=== PATIENT | female | born 1980 | race American Indian/Alaskan Native ===

== ENCOUNTER 2021-02-16 17:06 | Emergency (ER) | payer MEDICAID, OTHER ==
[2021-02-16 17:29] VITALS: BP 132/74
--- NOTE | 2021-02-16 18:22 | Emergency Department Report ---
ED Extremity Problem HPI - General Chief complaint: Extremity Injury, Lower Stated complaint: NUMBNESS AND TINGLING IN LEFT FOOT AND LEG. Time Seen by Provider: 02/16/21 17:53 Source: patient Mode of arrival: Ambulatory Limitations: No Limitations - History of Present Illness Initial comments: 40-year-old female who is currently 30 weeks presents to the ER today with complaints of left leg pain, numbness and tingling. Patient states that symptoms started 3 days ago. She reports that the numbness is mainly to the left foot, and the tingling is mainly to her left calf and sometimes into the left thigh. She is also having pain in her left thigh and her left calf. She states that what really concerned her was today when she felt feet it felt cold and so she came to the ER. She denies any apparent swelling to her legs. She denies any back pain, chest pain, shortness of breath, abdominal pain or any related issues, leg weakness, bowel or bladder incontinence. She is G5, P3, Ab1. She states that with her last she did end up having preeclampsia when she was around 36 weeks and she was concerned that her sympto ms today are related to the preeclampsia. She denies any concern for preeclampsia during this and she states that her blood pressure has been doing fine. She denies any prior history of DVT or PE. She denies any history of sciatica or issues with her back in the past. Complaint: extremity pain, other (left leg tingling/left foot numbness) -: days(s) (3) - Related Data Previous Rx's Medication Instructions Recorded Last Taken Type Ibuprofen [Motrin 600 MG tab] 600 mg PO Q8H PRN #30 tablet 11/13/15 Unknown Rx Allergies Allergy/AdvReac Type Severity Reaction Status Date / Time No Known Allergies Allergy Unverified 11/13/15 10:24 ED Review of Systems ROS: Stated complaint: NUMBNESS AND TINGLING IN LEFT FOOT AND LEG. Other details as noted in HPI Comment: All other systems reviewed and negative Constitutional: denies: chills, fever Eyes: denies: eye pain, eye discharge, vision change ENT: denies: ear pain, throat pain, dental pain, hearing loss, epistaxis, congestion Respiratory: denies: cough, shortness of breath, wheezing Cardiovascular: denies: chest pain, palpitations Endocrine: no symptoms reported Genitourinary: denies: urgency, dysuria, frequency, hematuria, discharge Musculoskeletal: other (Left leg pain, left foot tingling and left calf numbness). denies: back pain, joint swelling, arthralgia, myalgia Neurological: numbness, paresthesias. denies: headache, weakness, abnormal gait Psychiatric: denies: anxiety, depression, auditory hallucinations, visual hallucinations, homicidal thoughts, suicidal thoughts Hematological/Lymphatic: denies: easy bleeding, easy bruising, swollen glands ED Past Medical Hx - Past Medical History Previous Medical History?: Yes Hx Hypertension: Yes (preeclampsia) - Surgical History Past Surgical History?: No - Social History Smoking Status: Never Smoker Substance Use Type: None - Medications Home Medications: Home Medications Medication Instructions Recorded Confirmed Last Taken Type Ibuprofen [Motrin 600 MG tab] 600 mg PO Q8H PRN #30 tablet 11/13/15 Unknown Rx ED Physical Exam - General Limitations: No Limitations General appearance: alert, in no apparent distress - Head Head exam: Present: atraumatic, normocephalic, normal inspection - Eye Eye exam: Present: normal appearance, PERRL, EOMI Pupils: Present: normal accommodation - ENT ENT exam: Present: normal exam, mucous membranes moist - Neck Neck exam: Present: normal inspection, full ROM - Respiratory Respiratory exam: Present: normal lung sounds bilaterally. Absent: respiratory distress, wheezes, rales, rhonchi - Cardiovascular Cardiovascular Exam: Present: regular rate, normal rhythm, normal heart sounds - GI/Abdominal GI/Abdominal exam: Present: soft, other (Gravid uterus noted consistent with gestational age without any tenderness). Absent: distended, tenderness, guarding, rebound - Extremities Exam Extremities exam: Present: normal inspection, full ROM, calf tenderness (mild, left calf ). Absent: normal capillary refill, pedal edema, joint swelling - Back Exam Back exam: Present: normal inspection, full ROM. Absent: tenderness, paraspinal tenderness, vertebral tenderness - Neurological Exam Neurological exam: Present: alert, oriented X3, CN II-XII intact, normal gait, reflexes normal. Absent: motor sensory deficit - Psychiatric Psychiatric exam: Present: normal affect, normal mood - Skin Skin exam: Present: intact ED Course Vital Signs 02/16/21 17:26 Temperature 98.9 F Pulse Rate 104 H Respiratory 20 Rate Blood Pressure 132/74 O2 Sat by Pulse 99 Oximetry ED Medical Decision Making - Lab Data Result diagrams: 02/16/21 18:47 02/16/21 18:47 - Radiology Data Radiology results: report reviewed Patient: QIAN BRAUN MR#: [id number] : 1980 Acct:[id number] Age/Sex: 40 / F ADM Date: 02/16/21 Loc: ED Attending Dr: Ordering Physician: ZARI SHERIDAN Date of Service: 02/16/21 Procedure(s): VL venous duplex LE LT Accession Number(s): [id number] cc: ZARI SHERIDAN DUPLEX DOPPLER LOWER EXTREMITY VEINS, LEFT INDICATION / CLINICAL INFORMATION: left leg pain/30 weeks . TECHNIQUE: Duplex doppler imaging was performed through the veins of the left lower extremity using venous compression and other maneuvers. COMPARISON: None available. FINDINGS: LEFT COMMON FEMORAL VEIN: Negative. LEFT FEMORAL VEIN: Negative. LEFT POPLITEAL VEIN: Negative. LEFT CALF VEINS: Negative. ADDITIONAL FINDINGS: None. IMPRESSION: No sonographic evidence for DVT in the left lower extremity. Signer Name: Lety Erickson MD Signed: 02/16/2021 7:29 PM Workstation Name: [id number] Transcribed By: SS Dictated By: LETY ERICKSON Electronically Authenticated By: LETY ERICKSON Signed Date/Time: 02/16/211928 DD/ 28 TD/TT: - Medical Decision Making Labs unremarkable; Venous doppler normal Pt is well appearing, not toxic and not in any acute distress. She has no neuro deficitis on exam and her gait is normal in ED. She has no abd pain or other related complaints, chest or SOB. Her VS stable. At this time there is no indication for additional imaging/testing, specialist consult or admission. Pt symptoms could be related to sciatica at this time. Discussed suspected dx with patient. Recommend close f/u with OBGYN. She express ed understanding of instructions and agreed with plan. SHe was stable a time of d/c. Critical care attestation.: If time is entered above; I have spent that time in minutes in the direct care of this critically ill patient, excluding procedure time. ED Disposition Clinical Impression: Sciatica of left side, Paresthesia of left leg Disposition: DC-01 TO HOME OR SELFCARE Is pt being admited?: No Does the pt Need Aspirin: No Condition: Stable Instructions: Sciatica, [id number], Paresthesia, [id number] Additional Instructions: I recommend taking tylenol as needed for pain. Recommend close follow up with OBGYN next week. Return to ED if worse. Referrals: YORDAN ARREDONDO MD [Primary Care Provider] - 3-5 Days Forms: Work/School Release Form(ED) Time of Disposition: 20:01
[2021-02-16 19:14] LABS: Basophils % (Auto) 0.3 % (0.0-1.8); Eosinophils # (Auto) 0.2 K/mm3 (0.0-0.4); Eosinophils % (Auto) 1.4 % (0.0-4.3); Hemoglobin 10.6 gm/dl (10.1-14.3); Lymphocytes # (Auto) 2.4 K/mm3 (1.2-5.4); Lymphocytes % (Auto) 22.4 % (13.4-35.0); Mean Corpuscular HGB Conc 34 % (30-34); Mean Corpuscular Volume 85 fl (79-97); Monocytes # (Auto) 0.6 K/mm3 (0.0-0.8); Monocytes % (Auto) 5.1 % (0.0-7.3); Platelet Count 228 K/mm3 (140-440); Red Blood Count 3.64 M/mm3 (3.65-5.03); Red Cell Distribution Width 14.4 % (13.2-15.2)
[2021-02-16 19:26] LABS: Alanine Aminotransferase 6 units/L (7-56); Albumin 3.2 g/dL (3.9-5); BUN/Creatinine Ratio 10; Blood Urea Nitrogen 4 mg/dL (7-17); Calcium 8.7 mg/dL (8.4-10.2); Hemolysis Index 16
--- NOTE | 2021-02-16 19:34 | Vascular Lab Report ---
DUPLEX DOPPLER LOWER EXTREMITY VEINS, LEFT INDICATION / CLINICAL INFORMATION: left leg pain/30 weeks . TECHNIQUE: Duplex doppler imaging was performed through the veins of the left lower extremity using venous compr ession and other maneuvers. COMPARISON: None available. FINDINGS: LEFT COMMON FEMORAL VEIN: Negative. LEFT FEMORAL VEIN: Negative. LEFT POPLITEAL VEIN: Negative. LEFT CALF VEINS: Negative. ADDITIONAL FINDINGS: None. IMPRESSION: No sonographic evidence for DVT in the left lower extremity. Signer Name: Koby Erickson MD Signed: 02/16/2021 7:29 PM Workstation Name: [id number]
[2021-02-16 19:51] LABS: Bacteria,Urine 2+ /HPF (Negative); Bilirubin,Urine NEG (Negative); Blood,Urine MOD (Negative); Color,Urine Yellow (Yellow); Mucus,Urine FEW /HPF; Protein,Urine <15 mg/dL mg/dL (Negative); Urobilinogen,Urine < 2.0 mg/dL (<2.0)
== END 2021-02-17 | disposition home or self-care (01) ==
LOC: ED 17:06
DX: O26.893 Other specified pregnancy related conditions, third trimester (principal); M54.32 Sciatica, left side; R20.2 Paresthesia of skin; I10 Essential (primary) hypertension; Z3A.30 30 weeks gestation of pregnancy; Z79.1 Long term (current) use of non-steroidal anti-inflammatories (NSAID)
CPT/HCPCS: 36415; 80053; 81001; 83735; 85025

== ENCOUNTER 2021-04-05 22:05 | Outpatient (CLI) | payer MEDICAID | END 2021-04-06 00:25 | disposition home or self-care (01) | LOC: TRG 22:05 → APU 22:08 → TRG 04-06 00:25 | PROVIDERS: ATTEND Obstetrics & Gynecology | DX: O42.92 Full-term premature rupture of membranes, unspecified as to length of time between rupture and onset of labor (principal); Z3A.37 37 weeks gestation of pregnancy | CPT/HCPCS: 36415; 59025; 84112 ==

== ENCOUNTER 2021-04-08 10:51 | Inpatient (IN) | payer MEDICAID ==
[2021-04-08] MEDS ORDERED: LACTATED RINGERS 1,000 ML IV ONE (11:25)
[2021-04-08 12:47] LABS: Bacteria,Urine 2+ /HPF (Negative); Bilirubin,Urine NEG (Negative); Blood,Urine LG (Negative); Color,Urine Yellow (Yellow); Mucus,Urine FEW /HPF; Urobilinogen,Urine < 2.0 mg/dL (<2.0)
[2021-04-08 12:54] LABS: RBC,Urine > 182.0 /HPF (0.0-6.0)
--- NOTE | 2021-04-08 13:07 | Ultrasound Report ---
ULTRASOUND OBSTETRIC LIMITED ULTRASOUND BIOPHYSICAL PROFILE INDICATION / CLINICAL INFORMATION: leaking. COMPARISON: None available. FINDINGS: BREATHING MOVEMENT = 2 GROSS BODY MOVEMENT = 2 TONE = 2 QUALITATIVE AMNIOTIC FLUID VOLUME = 2 TOTAL BIOPHYSICAL SCORE = 8/8 HEART RATE (beats per minute): 149 AMNIOTIC FLUID INDEX (cm) = 7.8 (normal = 7-24 cm) PRESENTATION: Cephalic. ADDITIONAL FINDINGS: None. IMPRESSION: 1. Biophysical Score = 8/8 Signer Name: Juan Muhammad MD Signed: 04/08/2021 1:02 PM Workstation Name: [id number]
[2021-04-08] MEDS ORDERED: OXYTOCIN 10 UNIT/1 ML INJ IM PRN (13:56)
[2021-04-08] MEDS ORDERED: TERBUTALINE 1 MG/1 ML INJ SUB-Q PRN (13:56)
[2021-04-08] MEDS ORDERED: LIDOCAINE (2%) 20 MG/1 ML VIAL 20 ML MDV INFILTRATI NR (13:56)
[2021-04-08] MEDS ORDERED: LOPERAMIDE 2 MG CAP PO PRN (13:56)
[2021-04-08] MEDS ORDERED: OXYTOCIN DRIP 30 UNITS/500 ML BAG IV SCH ×2 (14:00)
[2021-04-08] MEDS ORDERED: fentaNYL 100 MCG/2 ML INJ IV PRN (14:30)
[2021-04-08] MEDS ORDERED: ACETAMINOPHEN 325 MG TAB PO PRN (14:30)
[2021-04-08] MEDS ORDERED: ePHEDrine SULFATE 50 MG/1 ML INJ IV PRN ×2 (14:30→19:44)
[2021-04-08] MEDS ORDERED: CARBOPROST TROMETHAMINE 250 MCG/1 ML INJ IM PRN (14:30)
[2021-04-08] MEDS ORDERED: BUTORPHANOL 2 MG/1 ML INJ IV PRN ×2 (14:30)
[2021-04-08] MEDS ORDERED: miSOPROStol 200 MCG TAB PR PRN (15:00)
[2021-04-08] MEDS ORDERED: METHYLERGONOVINE MALEATE 0.2 MG/ML VIAL IM PRN (15:00)
[2021-04-08] MEDS ORDERED: ONDANSETRON 4 MG/2 ML INJ IV PRN (15:00)
[2021-04-08] MEDS ORDERED: NALOXONE 0.4 MG/1 ML INJ IV PRN (15:00)
[2021-04-08 15:05] LABS: Hematocrit 31.7 % (30.3-42.9); Hemoglobin 10.6 gm/dl (10.1-14.3); Mean Corpuscular HGB Conc 34 % (30-34); Mean Corpuscular Volume 80 fl (79-97); Platelet Count 205 K/mm3 (140-440); Red Blood Count 3.95 M/mm3 (3.65-5.03); Red Cell Distribution Width 15.4 % (13.2-15.2)
[2021-04-08] MEDS: LACTATED RINGERS 1,000 ML IV SCH ×2 (16:10→21:08)
[2021-04-08] MEDS ORDERED: NALOXONE 2 MG/2 ML INJ IV PRN (19:44)
--- NOTE | 2021-04-08 19:45 | Anesthesia Consultation ---
Anesthesia Consult and Med Hx Date of service: 04/08/21 - Airway Anesthetic Teeth Evaluation: Good ROM Head & Neck: Adequate Mental/Hyoid Distance: Adequate Mallampati Class: Class II Intubation Access Assessment: Probably Good - Pulmonary Exam CTA: Yes - Cardiac Exam Cardiac Exam: RRR - Pre-Operative Health Status ASA Pre-Surgery Classification: ASA2 Proposed Anesthetic Plan: Epidural - Pulmonary Hx Asthma: No - Cardiovascular System Hx Hypertension: No - Central Nervous System Hx Seizures: No Hx Psychiatric Problems: No - Endocrine Hx Renal Disease: No Hx Hypothyroidism: No Hx Hyperthyroidism: No - Hematic Hx Anemia: No Hx Sickle Cell Disease: No - Other Systems Hx Alcohol Use: No
[2021-04-08] MEDS ORDERED: fentaNYL-BUPIV 2 MCG/ML-0.125% 200 MCG/100 ML BAG EPIDURAL SCH (20:00)
--- NOTE | 2021-04-08 20:11 | Progress Note ---
Labor Epidural - Labor Epidural Start Time: 19:51 Stop Time: 20:01 Performed by:: CATE COOL Procedure: Patient is requesting epidural for labor pain. H&P, and labs reviewed. Procedure explained, questions answered, consent obtained. Patient in sitting position with blood pressure cuff and pulse ox on and working. Timeout performed immediately before start of procedure. Sterile chlorahexadine 0.5% prep/drape. 3 mL 1% lidocaine skin wheal at L[3]-L[4]. 18-gauge [facility] epid[facility] needle advanced to [id number] with saline at [7] cm. 27-gauge spinal needle advanced until clear, free-flowing CSF. Intrathecal dexmedetomidine [5] mcg administered and needle removed. Epidural catheter advanced to [12] cm, negative aspiration for blood and csf, negative test dose 3 ml 1.5% lidocaine with epinephrine. Sterile steri-strips and tegaderm applied, followed by tape reinforcement. Patient had vagal/near syncopal episode during epidural placement from paresthesia which resolved.
[2021-04-08] MEDS ORDERED: MINERAL OIL 30 ML ORAL LIQD PO PRN (22:00)
[2021-04-08] MEDS ORDERED: AMPICILLIN/NS 2 GM/100 ML 2 GM/100 ML BAG IV ONE (22:35)
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
[2021-04-09] MEDS ORDERED: AMPICILLIN/NS 1 GM/50 ML 1 GM/50 ML BAG IV SCH (01:30)
--- NOTE | 2021-04-09 04:23 | Procedure Note ---
OB Delivery Note - Delivery Date of Delivery: 04/09/21 Surgeon: ROYCE MERA Estimated blood loss: other (awaiting QBL) - Vaginal Delivery presentation: vertex Delivery position: OA Intrapartum events: PROM->1hr before delivery, decreased FHT variability, mult.variable deceleratio, uterine atony (s/p Methergine 0.2 mg, Misoprostol 800 mcg SC) Delivery induction: oxytocin Delivery augmentation: pitocin Delivery monitor: external FHT, external uterine Route of delivery: Delivery placenta: spontaneous Delivery cord: nuchal cord (loose, reduced ) Episiotomy: none Delivery laceration: none - Infant A at 1 minute: 8 at 5 minutes: 9 Gender: Female (2370 (5lb 4oz) @ 0345 am)
[2021-04-09] MEDS ORDERED: IBUPROFEN 600 MG TAB PO ONE (05:32)
[2021-04-09] MEDS ORDERED: AMPICILLIN/NS 2 GM/100 ML 2 GM/100 ML BAG IV SCH (06:00)
[2021-04-09] MEDS ORDERED: LANOLIN/ZINC/DIMETHICONE (LANSINOH) 7 GM TP PRN ×2 (09:44→11:00)
[2021-04-09] MEDS ORDERED: BENZOCAINE/MENTHOL 20/0.5% TOP SPRAY 56 GM TP PRN (10:00)
[2021-04-09] MEDS: IBUPROFEN 600 MG TAB PO SCH ×3 (10:11→22:24)
[2021-04-09] MEDS: PRENATAL VIT27-FE FUMARATE-FOLIC ACID VIT TAB PO SCH (10:11)
[2021-04-09] MEDS: DOCUSATE SODIUM 100 MG CAP PO SCH ×2 (10:11→22:23)
[2021-04-09] MEDS: FERROUS SULFATE 325 MG TAB PO SCH ×2 (10:11→22:24)
[2021-04-09] MEDS ORDERED: PROMETHAZINE 25 MG RECT SUPP PR PRN (11:00)
[2021-04-09] MEDS ORDERED: WITCH HAZEL/ GLYCERIN PAD TP PRN (11:00)
[2021-04-09] MEDS ORDERED: diphenhydrAMINE 25 MG CAP PO PRN (11:00)
[2021-04-09] MEDS ORDERED: HYDROcodone/ACETAMINOPHEN 5-325 MG TAB PO PRN (11:00)
[2021-04-09] MEDS ORDERED: ONDANSETRON 4 MG/2 ML INJ IV PRN (11:00)
[2021-04-09] MEDS ORDERED: PROMETHAZINE 25 MG TAB PO PRN (11:30)
[2021-04-09] MEDS ORDERED: OXYTOCIN DRIP 30 UNITS/500 ML BAG IV SCH (11:30)
[2021-04-09 18:52] LABS: Hematocrit 28.2 % (30.3-42.9); Hemoglobin 9.1 gm/dl (10.1-14.3)
--- NOTE | 2021-04-09 20:01 | Post Anesthesia Evaluation ---
- Post Anesthesia Evaluation Patient Participated: Yes Airway Patent: Yes Stable Respiratory Function: Yes Nausea/Vomiting: No Temp > 96.8F: Yes Pain Manageable: Yes Adequeate Hydration: Yes Anesthesia Complications: No Block Receding Appropriately: Yes
[2021-04-09] MEDS ORDERED: MAGNESIUM HYDROXIDE (MOM) ORAL LIQD UDC PO PRN (22:00)
[2021-04-10] MEDS ORDERED: MEASLES, MUMPS & RUBELLA 12,500 UNIT/0.5 ML VACCINE SUB-Q ONE (04:25)
[2021-04-10] MEDS ORDERED: TETANUS,DIPH,PERTUSS(ACELL) VACCINE 0.5 ML SYRINGE IM ONE (04:25)
[2021-04-10] MEDS: IBUPROFEN 600 MG TAB PO SCH (05:52)
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
[2021-04-10] MEDS: FERROUS SULFATE 325 MG TAB PO SCH (13:44)
[2021-04-10] MEDS: PRENATAL VIT27-FE FUMARATE-FOLIC ACID VIT TAB PO SCH (13:44)
[2021-04-10] MEDS: DOCUSATE SODIUM 100 MG CAP PO SCH (13:45)
[2021-04-10 15:10] VITALS: BP 112/68
== END 2021-04-10 13:50 | disposition home or self-care (01) | DRG 775 ==
LOC: TRG 10:51 → APU 10:53 → LD 13:56 → TRG 13:56 → OB 04-09 09:58
PROVIDERS: ADMIT Obstetrics & Gynecology; ATTEND Obstetrics & Gynecology
PROC: 10E0XZZ Delivery of Products of Conception, External Approach (ICD-10-PCS; principal; 2021-04-09)
PROC: 3E033VJ Introduction of Other Hormone into Peripheral Vein, Percutaneous Approach (ICD-10-PCS; 2021-04-09)
PROC: 3E0R3BZ Introduction of Anesthetic Agent into Spinal Canal, Percutaneous Approach (ICD-10-PCS; 2021-04-09)
PROC: 00HU33Z Insertion of Infusion Device into Spinal Canal, Percutaneous Approach (ICD-10-PCS; 2021-04-09)
PROC: 3E0234Z Introduction of Serum, Toxoid and Vaccine into Muscle, Percutaneous Approach (ICD-10-PCS; 2021-04-10)
DX: O42.02 Full-term premature rupture of membranes, onset of labor within 24 hours of rupture (principal); O99.214 Obesity complicating childbirth; Z3A.37 37 weeks gestation of pregnancy; Z37.0 Single live birth; Z20.822 Contact with and (suspected) exposure to COVID-19; Z23 Encounter for immunization; M54.31 Sciatica, right side; O75.89 Other specified complications of labor and delivery; O09.523 Supervision of elderly multigravida, third trimester; O76 Abnormality in fetal heart rate and rhythm complicating labor and delivery; O69.81X0 Labor and delivery complicated by cord around neck, without compression, not applicable or unspecified; O90.81 Anemia of the puerperium; D50.9 Iron deficiency anemia, unspecified
CPT/HCPCS: 36415; 59025; 76815; 76819; 81001; 84112; 85014; 85018; 85027; 86592; 86850; 86900; 86901; 87086; 90471; 90715; G0378; J0290; J2210; J2590; J7120; U0003